=== PATIENT | male | born 1945 | race African-American/Black ===

== ENCOUNTER 2017-05-31 12:06 | Inpatient (IN) | payer OTHER, MEDICARE ==
--- NOTE | 2017-05-31 13:01 | ER Document Report ---
ED Medical Screen (RME) - General Chief Complaint: Weakness Stated Complaint: WEAKNESS Time Seen by Provider: 05/31/17 12:54 Notes: This 72-year-old male patient comes emergency room complaining of weakness and staggering. He has had a congested cough for 2 days, states last night he clear sputum cough all night did not get any sleep. Today he is having trouble controlling his urine. He does have a fever. He did not get a flu shot. He goes to the [facility] for [facility]. I have greeted and performed a rapid initial assessment of this patient. A comprehensive ED assessment and evaluation of the patient, analysis of test results and completion of the medical decision making process will be conducted by additional ED providers. TRAVEL OUTSIDE OF THE [place] 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
[2017-05-31 13:51] LABS: ABSOLUTE EOSINOPHILS # (AUTO) 0.1 10^3/uL (0.0-0.6); ABSOLUTE LYMPHOCYTES (AUTO) 1.1 10^3/uL (0.5-4.7); ABSOLUTE MONOCYTES (AUTO) 0.9 10^3/uL (0.1-1.4); ABSOLUTE NEUT (AUTO) 4.8 10^3/uL (1.7-8.2); BASOPHILS % (AUTO) 0.7 % (0-2); EOSINOPHILS % (AUTO) 0.9 % (0-6); HEMATOCRIT 34.9 % (37.9-51.0); HEMOGLOBIN 11.5 g/dL (13.5-17.0); LYMPHOCYTES % (AUTO) 16.1 % (13-45); MEAN CORPUSCULAR HEMOGLOBIN 25.9 pg (27.0-33.4); MEAN CORPUSCULAR VOLUME 79 fl (80-97); MONOCYTES % (AUTO) 12.6 % (3-13); PLATELET COUNT 238 10^3/uL (150-450); RED BLOOD COUNT 4.44 10^6/uL (4.35-5.55); RED CELL DISTRIBUTION WIDTH 15.1 % (11.5-14.0); SEGMENTED NEUTROPHILS % (AUTO) 69.7 % (42-78); TOTAL CELLS COUNTED % (AUTO) 100 %; WHITE BLOOD COUNT 6.9 10^3/uL (4.0-10.5)
[2017-05-31 13:58] LABS: APPEARANCE,URINE CLEAR; BILIRUBIN,URINE NEGATIVE (NEGATIVE); COLOR,URINE STRAW; GLUCOSE, URINE NEGATIVE (NEGATIVE); KETONES,URINE NEGATIVE (NEGATIVE); LEUKOCYTE ESTERASE,URINE NEGATIVE (NEGATIVE); NITRITE,URINE NEGATIVE (NEGATIVE); PROTEIN,URINE NEGATIVE (NEGATIVE); URINE SPECIFIC GRAVITY 1.012; UROBILINOGEN,URINE NEGATIVE mg/dL (<2.0)
--- NOTE | 2017-05-31 14:03 | RADIOLOGY REPORT (SQ) ---
EXAM DESCRIPTION: CHEST PA/LAT COMPLETED DATE/TIME: 05/31/2017 1:49 pm REASON FOR STUDY: Congested cough, fever, weakness COMPARISON: 01/06/2008 new EXAM PARAMETERS: NUMBER OF VIEWS: two views TECHNIQUE: Digital Frontal and Lateral radiographic views of the chest acquired. RADIATION DOSE: NA LIMITATIONS: none FINDINGS: LUNGS AND PLEURA: Patchy infiltrate changes both lung bases. Overall clearing of the lung palma however since prior study 2007. No large pleural effusion. MEDIASTINUM AND HILAR STRUCTURES: No masses or contour abnormalities. HEART AND VASCULAR STRUCTURES: Decrease in cardiomegaly since prior study. BONES: No acute findings. HARDWARE: None in the chest. OTHER: No other significant finding. IMPRESSION: Patchy changes both lung bases. TECHNICAL DOCUMENTATION: JOB ID: [id number] [employer]- All Rights Reserved
[2017-05-31] MEDS ORDERED: AZITHROMYCIN 250 MG TABLET PO ONE (14:09)
[2017-05-31 14:11] LABS: ALANINE AMINOTRANSFERASE 27 U/L (21-72); ALBUMIN 4.1 g/dL (3.5-5.0); ALKALINE PHOSPHATASE 97 U/L (38-126); ANION GAP 11 (5-19); ASPARTATE AMINO TRANSFERASE 23 U/L (17-59); BILIRUBIN,DIRECT 0.2 mg/dL (0.0-0.4); BILIRUBIN,TOTAL 0.5 mg/dL (0.2-1.3); BLOOD UREA NITROGEN 27 mg/dL (7-20); CALCIUM 9.6 mg/dL (8.4-10.2); CARBON DIOXIDE 26 mmol/L (22-30); CHLORIDE 102 mmol/L (98-107); CREATINE KINASE 120 U/L (55-170); GLUCOSE 100 mg/dL (75-110); POTASSIUM 3.8 mmol/L (3.6-5.0); SODIUM 139.3 mmol/L (137-145)
--- NOTE | 2017-05-31 14:15 | ER Document Report ---
ED General - General Chief Complaint: Weakness Stated Complaint: WEAKNESS Time Seen by Provider: 05/31/17 12:54 Notes: 72-year-old male with history of stroke presents with weakness. For 2 days. Fever yesterday but not today. Weakness is increasing. Decreased appetite today as well. He has been coughing some clear sputum. He has also been losing control of his urine, per report but not per him. No belly pain or vomiting. Denies skin rashes. TRAVEL OUTSIDE OF THE [place] IN LAST 30 DAYS: No - Related Data Allergies/Adverse Reactions: No Known Allergies Allergy (Verified 05/31/17 12:10) Past Medical History - Social History Smoking Status: Never Smoker Chew tobacco use (# tins/day): No Frequency of alcohol use: None Drug Abuse: None Family History: None Patient has suicidal ideation: No Patient has homicidal ideation: No - Past Medical History Cardiac Medical History: Reports: Hx Hypercholesterolemia, Hx Hypertension Pulmonary Medical History: Reports: Hx Pneumonia Renal/ Medical History: Denies: Hx Peritoneal Dialysis GI Medical History: Reports: Hx Gastroesophageal Reflux Disease Skin Medical History: Comment 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 Review of Systems - Review of Systems Notes: REVIEW OF SYSTEMS GEN: Generalized weakness ENT: Denies sore throat, nasal discharge, ear pain EYES: Denies blurry vision, eye pain, discharge CV: Denies chest pain, palpitations, edema RESP: Cough GI: Denies abdominal pain, nausea, vomiting, diarrhea MSK: Denies joint pain/swelling, edema, SKIN: Denies rash, skin lesions LYMPH: Denies swollen glands/lymph nodes NEURO: Denies headache, focal weakness or numbness, dizziness PSYCH: Denies depression, suicidal or homicidal ideation PHYSICAL EXAMINATION General: No acute distress, well-nourished Head: Atraumatic, normocephalic ENT: Mouth normal, oropharynx moist, no exudates or tonsillar enlargement Eyes: Conjunctiva normal, pupils equal, lids normal Neck: No JVD, supple, no guarding CVS: Normal rate, regular rhythm, no murmurs Resp: No resp distress, equal and normal breath sounds bilaterally GI: Nondistended, soft, no tenderness to palpation, no rebound or guarding Ext: No deformities, no edema, normal range of motion in upper and lower ext Back: No CVA or midline TTP Skin: No rash, warm Lymphatic: No lymphadeopathy noted Neuro: Awake, alert. Face symmetric. GCS 15. Physical Exam - Vital signs Vitals: Temp Pulse Resp BP Pulse Ox 100.6 F H 80 20 153/76 H 96 05/31/17 12:11 05/31/17 12:11 05/31/17 12:11 05/31/17 12:11 05/31/17 12:11 Course - Re-evaluation Re-evalutation: 05/31/17 14:14 Weakness for 2 days. Low-grade fever. Differential includes pneumonia urinary tract infection influenza. Does not quite meet sepsis criteria at this time. Patient is quite well- appearing. 05/31/17 14:15 He has an abnormal EKG consistent with LVH but has no chest pain or shortness of breath to suggest acute coronary syndrome. Troponin is pending. 05/31/17 15:25 Patient has pneumonia on chest x-ray. Not technically septic. Given Rocephin and azithromycin. We will give fluids and Tylenol. Tamiflu deferred pending flu test results. Patient admitted, discussed with Dr. Childs hospitalist for full admit floor. - Vital Signs Vital signs: Temp Pulse Resp BP Pulse Ox 100.6 F H 80 20 153/76 H 96 05/31/17 12:11 05/31/17 12:11 05/31/17 12:11 05/31/17 12:11 05/31/17 12:11 - Laboratory Result Diagrams: 05/31/17 12:55 05/31/17 12:55 Laboratory results interpreted by me: 05/31/17 05/31/17 12:55 12:55 Hgb 11.5 L Hct 34.9 L MCV 79 L MCH 25.9 L RDW 15.1 H BUN 27 H Creatinine 1.82 H Est GFR ( Amer) 45 L Est GFR (Non-Af Amer) 37 L - Diagnostic Test Radiology reviewed: Image reviewed, Reports reviewed - EKG Interpretation by Wy EKG shows normal: Sinus rhythm Rate: Normal Rhythm: NSR Voltage: Consistant with LVH - T-wave inversion with ST depression in the lateral leads. No old for comparison. When compared to previous EKG there are: Previous EKG unavailable Discharge - Discharge Clinical Impression: Pneumonia of both lower lobes Qualifiers: Pneumonia type: due to unspecified organism Qualified Code(s): J18.9 - Pneumonia, unspecified organism Condition: Good Disposition: ADMITTED INPATIENT Admitting Provider: Hospitalist Unit Admitted: Medical Floor
[2017-05-31 14:23] LABS: TROPONIN I 0.026 ng/mL
[2017-05-31 14:26] LABS: CREATINE KINASE MB < 0.22 ng/mL (<4.55)
[2017-05-31] MEDS ORDERED: CEFTRIAXONE 1 GM/D5W RTU 1 GM/50 ML RTUPB IV ONE (14:30)
[2017-05-31] MEDS ORDERED: NORMAL SALINE 1000 ML 1,000 ML IV ONE (15:15)
[2017-05-31] MEDS ORDERED: IPRATROPIUM/ALBUTEROL 0.5-2.5 MG/3 ML AMPUL NEB PRN (17:06)
[2017-05-31] MEDS ORDERED: 1/2 NORMAL SALINE 1,000 ML IV PRN (17:06)
[2017-05-31] MEDS ORDERED: MAGNESIUM HYDROXIDE SUSP 30 ML UDCUP PO PRN (17:06)
[2017-05-31] MEDS ORDERED: ONDANSETRON HCL INJ/PF 4 MG/2 ML SDV IV PRN (17:06)
--- NOTE | 2017-05-31 17:06 | PDOC H&P ---
History of Present Illness Admission Date/PCP: 05/31/17 16:07 Patient complains of: Productive cough and weakness. History of Present Illness: KODY GLORIA JR is a 72 year old male. The patient is a poor historian. He tells me that 2 days ago he started to have a cough. His cough progressed to the point that he was unable to sleep last night. He stated that he did not have any fevers, but he did have the shakes and cold chills. This information was given by his cousin. However, with a described sounds like a chill. The patient has been unable to walk since this morning secondary to weakness. The patient did have a low-grade temperature in the emergency department 100.8. The patient denies nausea, vomiting or diarrhea. He does not have a sore throat and he does not have odynophagia. He does describe generalized body aches. Review of systems is otherwise unremarkable. His past medical history is only significant for hypertension and a previous stroke in 1996. Patient's medication list has not yet been updated. The patient is able to tell me that he takes a atenolol but he does not remember the names of his other medications. Therefore, the list is not provided below. We will update this when available. Past Medical History Cardiac Medical History: Reports: Hyperlipidema, Hypertension Pulmonary Medical History: Reports: Pneumonia GI Medical History: Reports: Gastroesophageal Reflux Disease Social History Smoking Status: Never Smoker - Advance Directive Resuscitation Status: Do Not Resuscitate Surrogate healthcare decision maker:: The patient clearly states that he wishes to be a DNR. He states that if his heart stops he must be sick enough to warrant . His surrogate decision maker is his sister who is Blanca David. She can be reached at [phone]. Family History Family History: None, Reviewed & Not Pertinent Parental Family History Reviewed: Yes - Parents of natural causes. Children Family History Reviewed: Yes Sibling(s) Family History Reviewed.: Yes - Children are Alive and Well. Sibling has colon cancer and diabetes. Medication/Allergy Allergies/Adverse Reactions: No Known Allergies Allergy (Verified 05/31/17 12:10) Review of Systems Constitutional: PRESENT: chills, fatigue, weakness Eyes: ABSENT: as per HPI, visual disturbances, other Ears: ABSENT: as per HPI, hearing changes, other Nose, Mouth, and Throat: ABSENT: as per HPI, headache(s), mouth pain, sore throat, vertigo, other Breasts: ABSENT: as per HPI, other Cardiovascular: ABSENT: as per HPI, chest pain, dyspnea on exertion, edema, orthropnea, palpitations, other Respiratory: PRESENT: cough, dyspnea Gastrointestinal: ABSENT: as per HPI, abdominal pain, bloating, coffee ground emesis, constipation, diarrhea, dysphagia, heartburn, hematemesis, hematochezia , melena, nausea, vomiting, other Genitourinary: ABSENT: as per HPI, difficulty urinating, dysuria, hematuria, nocturia, other Musculoskeletal: PRESENT: muscle weakness Integumentary: ABSENT: as per HPI, diaphoresis, erythema, lesions, pruritus, rash, wounds, other Neurological: PRESENT: weakness Psychiatric: ABSENT: as per HPI, anxiety, depression, hallucinations, homidical ideation, suicidal ideation, other Endocrine: ABSENT: as per HPI, cold intolerance, flushing, heat intolerance, menstrual abnormalities, polydipsia, polyphagia, polyuria, other Hematologic/Lymphatic: ABSENT: as per HPI, easy bleeding, easy bruising, lymphadenopathy, other Allergic/Immunologic: ABSENT: as per HPI, seasonal rhinorrhea, other Physical Exam Vital Signs: Temp Pulse Resp BP Pulse Ox 100.6 F H 80 20 153/76 H 96 05/31/17 12:11 05/31/17 12:11 05/31/17 12:11 05/31/17 12:11 05/31/17 12:11 Additional comments: The patient appears to be his stated age. His cognition and mentation are appropriate. His facial appearance is appropriate. His oropharynx is benign. His lips are normal and his mucous membranes are moist. His neck is supple. He does not have any cervical or supraclavicular lymphadenopathy. His lungs are very clear. There are clear anteriorly and posteriorly. His cardiac exam is regular without murmurs, gallops or rubs. The abdomen is obese but soft. Bowel sounds are present. There is no guarding or rebound noted and there are no hernias or masses present. The lower extremities are warm to touch without any pitting edema. The skin is warm dry and intact without lesions or rashes. Results Impressions: Chest X-Ray 05/31/17 12:59 IMPRESSION: Patchy changes both lung bases. Assessment & Plan - Diagnosis (1) Pneumonia of both lower lobes Qualifiers: Pneumonia type: due to unspecified organism Qualified Code(s): J18.9 - Pneumonia, unspecified organism Is this a current diagnosis for this admission?: Yes Plan: The patient's clinical exam and chest x-ray are fairly unremarkable. However, his clinical presentation is suggestive of community-acquired pneumonia. He may be somewhat dehydrated and he may not yet have blossomed out an infiltrate. In any event, I am going to start antibiotics for community-acquired pneumonia with Rocephin and azithromycin. Flu titers will be sent as well. (2) Hypertension Is this a current diagnosis for this admission?: Yes Plan: Once we verify the patient's home medication list I will continue his home regimen. (3) CVA (cerebral vascular accident) Is this a current diagnosis for this admission?: Yes Plan: Once we have verified the patient's home medication list I will continue his routine medications unless there is some contraindication. - Time Time Spent: 30 to 50 Minutes - Inpatient Certification Medical Necessity: Need for IV Antibiotics
[2017-05-31] MEDS ORDERED: HYDRALAZINE HCL INJ/PF 20 MG/1 ML SDV IV PRN (17:15)
[2017-05-31 17:32] LABS: A TYPE INFLUENZA AG NEGATIVE (NEGATIVE); B INFLUENZA AG NEGATIVE (NEGATIVE)
[2017-05-31] MEDS ORDERED: ENOXAPARIN SODIUM INJ 40 MG/0.4 ML DISP.SYRIN SUBCUT ONE (19:00)
[2017-05-31] MEDS: ACETAMINOPHEN 325 MG TABLET PO PRN (19:39)
[2017-05-31] MEDS: ATORVASTATIN CALCIUM 40 MG TABLET PO SCH (21:32)
[2017-05-31] MEDS: GABAPENTIN 300 MG CAPSULE PO SCH (21:32)
[2017-05-31] MEDS: LANSOPRAZOLE 15 MG TAB.RAP.DR PO SCH (21:33)
[2017-06-01] MEDS: ACETAMINOPHEN 325 MG TABLET PO PRN ×3 (00:08→19:39)
[2017-06-01 05:16] LABS: ABSOLUTE LYMPHOCYTES (AUTO) 0.9 10^3/uL (0.5-4.7); ABSOLUTE NEUT (AUTO) 4.8 10^3/uL (1.7-8.2); BASOPHILS % (AUTO) 0.7 % (0-2); EOSINOPHILS % (AUTO) 0.2 % (0-6); HEMATOCRIT 32.5 % (37.9-51.0); HEMOGLOBIN 10.9 g/dL (13.5-17.0); LYMPHOCYTES % (AUTO) 13.7 % (13-45); MEAN CORPUSCULAR HEMOGLOBIN 26.5 pg (27.0-33.4); MEAN CORPUSCULAR HGB CONC 33.4 g/dL (32.0-36.0); MEAN CORPUSCULAR VOLUME 79 fl (80-97); MONOCYTES % (AUTO) 14.4 % (3-13); PLATELET COUNT 189 10^3/uL (150-450); RED CELL DISTRIBUTION WIDTH 15.3 % (11.5-14.0); TOTAL CELLS COUNTED % (AUTO) 100 %; WHITE BLOOD COUNT 6.8 10^3/uL (4.0-10.5)
[2017-06-01 05:36] LABS: ANION GAP 9 (5-19); BLOOD UREA NITROGEN 26 mg/dL (7-20); CALCIUM 8.7 mg/dL (8.4-10.2); CARBON DIOXIDE 26 mmol/L (22-30); CHLORIDE 104 mmol/L (98-107); GLUCOSE 93 mg/dL (75-110); MAGNESIUM 1.9 mg/dL (1.6-2.3); POTASSIUM 3.7 mmol/L (3.6-5.0); SODIUM 139.3 mmol/L (137-145)
[2017-06-01] MEDS ORDERED: (PENDING PHARMACY ID) (Atenolol [Tenormin 100 Mg Tablet] 100 MG) PO SCH (10:00)
[2017-06-01] MEDS ORDERED: AMLODIPINE BESYLATE 10 MG TABLET PO SCH (10:00)
[2017-06-01] MEDS ORDERED: AZITHROMYCIN 500 MG in DEXTROSE 5%-WATER 250 ML IV SCH (10:00)
--- NOTE | 2017-06-01 10:28 | PDOC PROGRESS REPORT ---
Subjective Progress Note for:: 06/01/17 Subjective:: Patient is complaining of generalized weakness He denies pleuritic chest pain or shortness of breath Denies abdominal pain flank pain dysuria no nausea or vomiting Reason For Visit: PNEUMONIA Physical Exam Vital Signs: Temp Pulse Resp BP Pulse Ox 98.1 F 77 24 H 144/74 H 95 06/01/17 05:52 06/01/17 05:52 06/01/17 05:52 06/01/17 05:52 06/01/17 05:52 Does look chronically ill in no acute distress alert and awake Pupils are PERRLA extraocular movements are intact Neck supple Heart regular rhythm Lungs are clear bilaterally no rales no rhonchi Abdomen is soft nontender no organomegaly normal bowel sounds No CVA tenderness Extremities are intact Results Laboratory Results: 06/01/17 05:03 06/01/17 05:03 06/01/17 06/01/17 05:03 05:03 WBC 6.8 RBC 4.10 L Hgb 10.9 L Hct 32.5 L MCV 79 L MCH 26.5 L MCHC 33.4 RDW 15.3 H Plt Count 189 Seg Neutrophils % 71.0 Lymphocytes % 13.7 Monocytes % 14.4 H Eosinophils % 0.2 Basophils % 0.7 Absolute Neutrophils 4.8 Absolute Lymphocytes 0.9 Absolute Monocytes 1.0 Absolute Eosinophils 0.0 Absolute Basophils 0.0 Sodium 139.3 Potassium 3.7 Chloride 104 Carbon Dioxide 26 Anion Gap 9 BUN 26 H Creatinine 1.70 H Est GFR ( Amer) 48 L Est GFR (Non-Af Amer) 40 L Glucose 93 Calcium 8.7 Magnesium 1.9 Impressions: Chest X-Ray 05/31/17 12:59 IMPRESSION: Patchy changes both lung bases. Assessment & Plan - Diagnosis (1) History of CVA (cerebrovascular accident) Is this a current diagnosis for this admission?: Yes (2) Hypertension Qualifiers: Hypertension type: essential hypertension Qualified Code(s): I10 - Essential (primary) hypertension Is this a current diagnosis for this admission?: Yes Plan: Continue patient's present medications We will reevaluate (3) Pneumonia of both lower lobes Qualifiers: Pneumonia type: due to unspecified organism Qualified Code(s): J18.9 - Pneumonia, unspecified organism Is this a current diagnosis for this admission?: Yes Plan: Pneumonia likely to be secondary to gram-negative as patient has gram-negative bacteremia We will continue present management Treat with cefepime and Cipro until identification sensitivity of the blood cultures are available Repeat blood cultures tomorrow (4) Gram-negative bacteremia Is this a current diagnosis for this admission?: Yes Plan: Continue Cipro and cefepime - Time Time Spent with patient: 25-34 minutes - Plan Summary Plan Summary: Continue present management CT abdomen and pelvis pending
--- NOTE | 2017-06-01 10:32 | EKG REPORT ---
SEVERITY:- ABNORMAL ECG - SINUS RHYTHM LVH WITH SECONDARY REPOLARIZATION ABNORMALITY REPOL ABNRM, PROBABLE ISCHEMIA, ANT-LAT LEADS : Confirmed by: Shabnam Mccormick 01-Jun-2017 10:30:32
[2017-06-01] MEDS: LORATADINE 10 MG TABLET PO SCH (10:59)
[2017-06-01] MEDS: AMLODIPINE BESYLATE 5 MG TABLET PO SCH (10:59)
[2017-06-01] MEDS: ATENOLOL 50 MG TABLET PO SCH (11:00)
[2017-06-01] MEDS: ENOXAPARIN SODIUM INJ 40 MG/0.4 ML DISP.SYRIN SUBCUT SCH (11:00)
[2017-06-01] MEDS: ASPIRIN 81 MG TABLET, ENT COATED PO SCH (11:00)
[2017-06-01] MEDS: CHOLECALCIFEROL (D3) 1,000 UNIT TABLET PO SCH (11:00)
[2017-06-01] MEDS: CIPROFLOXACIN 400 MG/D5W RTU 400 MG/200 ML RTUPB IV SCH ×2 (11:58→23:47)
--- NOTE | 2017-06-01 13:47 | RADIOLOGY REPORT (SQ) ---
EXAM DESCRIPTION: CT ABD/PELVIS NO ORAL OR IV COMPLETED DATE/TIME: 06/01/2017 12:43 pm REASON FOR STUDY: gram neg bacteremia ARF COMPARISON: CT angio chest 12/26/2007 TECHNIQUE: CT scan of the abdomen and pelvis performed without intravenous or oral contrast. Images reviewed with lung, soft tissue, and bone windows. Reconstructed coronal and sagittal MPR images revi ewed. All images stored on PACS. All CT scanners at this facility use dose modulation, iterative reconstruction, and/or weight based d osing when appropriate to reduce radiation dose to as low as reasonably achievable (ALARA). [facility]: Dose Right [facility]: CareDose [facility]: Dose Right [facility]: Teradose 4D [facility]: Smart Kili RADIATION DOSE: CT Rad equipment meets quality standard of care and radiation dose reduction techniq ues were employed. CTDIvol: 9.0 mGy. DLP: 478 mGy-cm.mGy. LIMITATIONS: None. FINDINGS: LOWER CHEST: Patchy consolidation in the left posterior costophrenic sulcus, atelectasis v ersus pneumonia. Small hiatal hernia. No cardiomegaly or pericardial effusion NON-CONTRASTED LIVER, SPLEEN, ADRENALS: Evaluation limited by lack of IV contrast. No identified sign ificant masses. PANCREAS: No masses. No peripancreatic inflammatory changes. GALLBLADDER: No identified stones by CT criteria. No inflammatory changes to suggest cholecystitis. RIGHT KIDNEY AND URETER: No suspicious masses. Assessment limited by lack of IV contrast. No signif icant calcifications. No hydronephrosis or hydroureter. LEFT KIDNEY AND URETER: No suspicious masses. Assessment limited by lack of IV contrast. No signifi cant calcifications. No hydronephrosis or hydroureter. AORTA AND RETROPERITONEUM: No aneurysm. No retroperitoneal masses or adenopathy. BOWEL AND PERITONEAL CAVITY: No free intraperitoneal air or fluid. No CT signs of bowel obstruction, colitis or diverticulitis. Incidental finding of several diverticuli along the distal ileum without inflammation, best shown on coronal images 45-51. APPENDIX: Normal. PELVIS, BLADDER, AND ABDOMINAL WALL:No abnormal masses. No free fluid. Bladder normal. Fat containin g right inguinal hernia BONES: No significant findings. OTHER: No other significant finding. IMPRESSION: Left basilar airspace disease worrisome for pneumonia. No findings over the abdomen or pelvis to explain history of g negative bacteremia. No urinary stone s. No abscess. COMMENT: Quality ID # [id number]: Final reports with documentation of one or more dose reduction techniques (e.g., Automated exposure control, adjustment of the mA and/or kV according to patient size, use of iterative reconstruction technique) TECHNICAL DOCUMENTATION: JOB ID: [id number] [employer]- All Rights Reserved
[2017-06-01] MEDS ORDERED: CEFTRIAXONE 1 GM/D5W RTU 1 GM/50 ML RTUPB IV SCH (18:00)
[2017-06-01] MEDS: GABAPENTIN 300 MG CAPSULE PO SCH (21:10)
[2017-06-01] MEDS: TEMAZEPAM 7.5 MG CAPSULE PO PRN (21:10)
[2017-06-01] MEDS: ATORVASTATIN CALCIUM 40 MG TABLET PO SCH (21:11)
[2017-06-01] MEDS: LANSOPRAZOLE 15 MG TAB.RAP.DR PO SCH (21:11)
[2017-06-01] MEDS: CEFEPIME 1 GM/D5W RTU 1 GM/50 ML RTUPB IV SCH (22:27)
[2017-06-02] MEDS: ONDANSETRON HCL INJ/PF 4 MG/2 ML SDV IV PRN ×2 (03:12→08:53)
[2017-06-02 07:03] LABS: ABSOLUTE LYMPHOCYTES (AUTO) 1.2 10^3/uL (0.5-4.7); ABSOLUTE MONOCYTES (AUTO) 0.7 10^3/uL (0.1-1.4); ABSOLUTE NEUT (AUTO) 2.9 10^3/uL (1.7-8.2); BASOPHILS % (AUTO) 0.6 % (0-2); EOSINOPHILS % (AUTO) 0.8 % (0-6); HEMATOCRIT 33.9 % (37.9-51.0); LYMPHOCYTES % (AUTO) 24.3 % (13-45); MEAN CORPUSCULAR HEMOGLOBIN 25.7 pg (27.0-33.4); MEAN CORPUSCULAR HGB CONC 32.5 g/dL (32.0-36.0); MEAN CORPUSCULAR VOLUME 79 fl (80-97); MONOCYTES % (AUTO) 14.3 % (3-13); PLATELET COUNT 178 10^3/uL (150-450); RED BLOOD COUNT 4.27 10^6/uL (4.35-5.55); RED CELL DISTRIBUTION WIDTH 15.2 % (11.5-14.0); TOTAL CELLS COUNTED % (AUTO) 100 %; WHITE BLOOD COUNT 4.8 10^3/uL (4.0-10.5)
[2017-06-02 07:27] LABS: ANION GAP 10 (5-19); BLOOD UREA NITROGEN 21 mg/dL (7-20); CALCIUM 8.5 mg/dL (8.4-10.2); CARBON DIOXIDE 23 mmol/L (22-30); CHLORIDE 104 mmol/L (98-107); GLUCOSE 88 mg/dL (75-110); POTASSIUM 3.6 mmol/L (3.6-5.0); SODIUM 137.1 mmol/L (137-145)
[2017-06-02] MEDS ORDERED: OXYCODONE HCL IR 5 MG TABLET PO PRN (10:07)
[2017-06-02] MEDS ORDERED: OXYCODONE-ACETAMINOPHEN 5-325 MG TABLET PO PRN (10:07)
[2017-06-02] MEDS: ATENOLOL 50 MG TABLET PO SCH (10:44)
[2017-06-02] MEDS: ASPIRIN 81 MG TABLET, ENT COATED PO SCH (10:44)
[2017-06-02] MEDS: LORATADINE 10 MG TABLET PO SCH (10:44)
[2017-06-02] MEDS: ENOXAPARIN SODIUM INJ 40 MG/0.4 ML DISP.SYRIN SUBCUT SCH (10:44)
[2017-06-02] MEDS: AMLODIPINE BESYLATE 5 MG TABLET PO SCH (10:45)
[2017-06-02] MEDS: CHOLECALCIFEROL (D3) 1,000 UNIT TABLET PO SCH (10:45)
[2017-06-02] MEDS: CEFEPIME 1 GM/D5W RTU 1 GM/50 ML RTUPB IV SCH ×2 (10:45→21:45)
[2017-06-02] MEDS: CIPROFLOXACIN 400 MG/D5W RTU 400 MG/200 ML RTUPB IV SCH (11:44)
--- NOTE | 2017-06-02 13:55 | PDOC PROGRESS REPORT ---
Subjective Progress Note for:: 06/02/17 Subjective:: Patient is complainig of lowback pain no fever no chills Reason For Visit: PNEUMONIA Physical Exam Vital Signs: Temp Pulse Resp BP Pulse Ox 98.4 F 66 18 125/56 L 96 06/02/17 12:00 06/02/17 13:28 06/02/17 13:28 06/02/17 12:00 06/02/17 13:28 Intake & Output 06/01/17 06/02/17 06/03/17 00:59 00:59 00:59 Intake Total 270 180 Output Total 200 Balance 70 180 Weight 88.1 kg IDoes look chronically ill in no acute distress alert and awake Pupils are PERRLA extraocular movements are intact Neck supple Heart regular rhythm Lungs are clear bilaterally no rales no rhonchi Abdomen is soft nontender no organomegaly normal bowel sounds No CVA tenderness Extremities are intact Results Laboratory Results: 06/02/17 06:38 06/02/17 06:38 06/02/17 06/02/17 06:38 06:38 WBC 4.8 RBC 4.27 L Hgb 11.0 L Hct 33.9 L MCV 79 L MCH 25.7 L MCHC 32.5 RDW 15.2 H Plt Count 178 Seg Neutrophils % 60.0 Lymphocytes % 24.3 Monocytes % 14.3 H Eosinophils % 0.8 Basophils % 0.6 Absolute Neutrophils 2.9 Absolute Lymphocytes 1.2 Absolute Monocytes 0.7 Absolute Eosinophils 0.0 Absolute Basophils 0.0 Sodium 137.1 Potassium 3.6 Chloride 104 Carbon Dioxide 23 Anion Gap 10 BUN 21 H Creatinine 1.52 H Est GFR ( Amer) 55 L Est GFR (Non-Af Amer) 46 L Glucose 88 Calcium 8.5 Magnesium 2.0 05/31/17 16:45 Sputum Gram Stain - Final 05/31/17 16:45 Sputum Sputum Culture - Final Morax.(Branhamella)Catarrhalis Normal Kristen Impressions: Chest X-Ray 05/31/17 12:59 IMPRESSION: Patchy changes both lung bases. Abdomen/Pelvis CT 06/01/17 10:26 IMPRESSION: Left basilar airspace disease worrisome for pneumonia. No findings over the abdomen or pelvis to explain history of g negative bacteremia. No urinary stones. No abscess. Assessment & Plan - Diagnosis (1) History of CVA (cerebrovascular accident) Is this a current diagnosis for this admission?: Yes (2) Hypertension Qualifiers: Hypertension type: essential hypertension Qualified Code(s): I10 - Essential (primary) hypertension Is this a current diagnosis for this admission?: Yes (3) Pneumonia of both lower lobes Qualifiers: Pneumonia type: due to unspecified organism Qualified Code(s): J18.9 - Pneumonia, unspecified organism Is this a current diagnosis for this admission?: Yes Plan: culture grew Moraxella change cipro for Levaquin (4) Gram-negative bacteremia Is this a current diagnosis for this admission?: Yes Plan: cultures still pending continue IV Cefepime- Levaquin CT abd pelvis was negative (5) CKD (chronic kidney disease) stage 3, GFR 30-59 ml/min Is this a current diagnosis for this admission?: Yes Plan: improving - stable continue IV fluids - Time Time Spent with patient: 15-24 minutes - Plan Summary Plan Summary: awaiting results blood culture reevaluate for discharge in 24-48 hours
[2017-06-02] MEDS: HYDROCODONE/ACETAMINOPHEN 5-325 MG TABLET PO PRN ×2 (14:20→19:45)
[2017-06-02] MEDS: 1/2 NORMAL SALINE 1,000 ML IV PRN (18:21)
[2017-06-02] MEDS: ATORVASTATIN CALCIUM 40 MG TABLET PO SCH (21:46)
[2017-06-02] MEDS: LANSOPRAZOLE 15 MG TAB.RAP.DR PO SCH (21:46)
[2017-06-02] MEDS: GABAPENTIN 300 MG CAPSULE PO SCH (21:47)
[2017-06-02] MEDS: TEMAZEPAM 7.5 MG CAPSULE PO PRN (21:56)
[2017-06-03] MEDS: HYDROCODONE/ACETAMINOPHEN 5-325 MG TABLET PO PRN ×3 (05:48→21:24)
[2017-06-03 07:20] LABS: ABSOLUTE EOSINOPHILS # (AUTO) 0.1 10^3/uL (0.0-0.6); ABSOLUTE LYMPHOCYTES (AUTO) 1.5 10^3/uL (0.5-4.7); ABSOLUTE MONOCYTES (AUTO) 0.7 10^3/uL (0.1-1.4); ABSOLUTE NEUT (AUTO) 1.7 10^3/uL (1.7-8.2); BASOPHILS % (AUTO) 0.7 % (0-2); EOSINOPHILS % (AUTO) 2.3 % (0-6); HEMATOCRIT 33.4 % (37.9-51.0); HEMOGLOBIN 10.9 g/dL (13.5-17.0); MEAN CORPUSCULAR HEMOGLOBIN 26.1 pg (27.0-33.4); MEAN CORPUSCULAR HGB CONC 32.7 g/dL (32.0-36.0); MEAN CORPUSCULAR VOLUME 80 fl (80-97); MONOCYTES % (AUTO) 16.1 % (3-13); PLATELET COUNT 194 10^3/uL (150-450); RED BLOOD COUNT 4.19 10^6/uL (4.35-5.55); RED CELL DISTRIBUTION WIDTH 15.4 % (11.5-14.0); SEGMENTED NEUTROPHILS % (AUTO) 42.9 % (42-78); TOTAL CELLS COUNTED % (AUTO) 100 %
[2017-06-03 07:43] LABS: ANION GAP 8 (5-19); BLOOD UREA NITROGEN 20 mg/dL (7-20); CALCIUM 8.6 mg/dL (8.4-10.2); CARBON DIOXIDE 26 mmol/L (22-30); CHLORIDE 105 mmol/L (98-107); GLUCOSE 84 mg/dL (75-110); MAGNESIUM 1.8 mg/dL (1.6-2.3); POTASSIUM 3.6 mmol/L (3.6-5.0); SODIUM 139.3 mmol/L (137-145)
[2017-06-03] MEDS ORDERED: LEVOFLOXACIN 750 MG/D5W RTU 750 MG/150 ML RTUPB IV SCH (10:00)
[2017-06-03] MEDS: CHOLECALCIFEROL (D3) 1,000 UNIT TABLET PO SCH (10:06)
[2017-06-03] MEDS: AMLODIPINE BESYLATE 5 MG TABLET PO SCH (10:06)
[2017-06-03] MEDS: ENOXAPARIN SODIUM INJ 40 MG/0.4 ML DISP.SYRIN SUBCUT SCH (10:06)
[2017-06-03] MEDS: LORATADINE 10 MG TABLET PO SCH (10:07)
[2017-06-03] MEDS: ASPIRIN 81 MG TABLET, ENT COATED PO SCH (10:07)
[2017-06-03] MEDS: ATENOLOL 50 MG TABLET PO SCH (10:07)
[2017-06-03] MEDS: CEFEPIME 1 GM/D5W RTU 1 GM/50 ML RTUPB IV SCH (12:09)
[2017-06-03] MEDS: 1/2 NORMAL SALINE 1,000 ML IV PRN (12:14)
--- NOTE | 2017-06-03 14:02 | Physician Advisory Note ---
Physician Advisor ProgressNote .: Pursuant to the plan for [facility], I have reviewed the medical record for this patient. Physician Advisor Statement: Nice documentation of GN bacteremia (no clear sepsis). Please consider documenting, if you agree: 1. "BLL M. [place]allas Pneumonia, evidenced by fever, chills, dyspnea, cough w/ sputum, infiltrates, tachypnea up to 24, ..." (Securities Clerk can't assume causality - dr must make explicit. Evidence for PNA dx.s must be spelled out now, as payers are denying cases based on "insufficient documented clinical evidence".) - This dx is listed as Principal Dx on H&P - if this is the main reason for admission, please keep it as Dx #1 in all notes. 2. "Past CVA w/associated Left Hemiparesis" Thanks! CK
--- NOTE | 2017-06-03 17:40 | PDOC PROGRESS REPORT ---
Subjective Progress Note for:: 06/03/17 Subjective:: Patient states that he is feeling well and he has no complaints ; no shortness of breath No nausea vomiting or abdominal pain Reason For Visit: PNEUMONIA Physical Exam Vital Signs: Temp Pulse Resp BP Pulse Ox 98.0 F 59 L 18 132/76 H 97 06/03/17 15:00 06/03/17 15:00 06/03/17 15:00 06/03/17 15:00 06/03/17 15:00 Intake & Output 06/02/17 06/03/17 06/04/17 00:59 00:59 00:59 Intake Total 270 440 100 Output Total 200 650 Balance 70 -210 100 Weight 88.1 kg 88 kg General appearance: PRESENT: no acute distress, well-developed, well-nourished Head exam: PRESENT: atraumatic, normocephalic Eye exam: PRESENT: conjunctiva pink, EOMI, PERRLA. ABSENT: scleral icterus Neck exam: ABSENT: carotid bruit, JVD, lymphadenopathy, thyromegaly Respiratory exam: PRESENT: clear to auscultation soni. ABSENT: rales, rhonchi, wheezes Pulses: PRESENT: normal dorsalis pedis pul GI/Abdominal exam: PRESENT: normal bowel sounds, soft. ABSENT: distended, guarding, mass, organolmegaly, rebound, tenderness Extremities exam: PRESENT: full ROM. ABSENT: calf tenderness, clubbing, pedal edema Results Laboratory Results: 06/03/17 06:20 06/03/17 06:20 06/03/17 06/03/17 06:20 06:20 WBC 4.0 RBC 4.19 L Hgb 10.9 L Hct 33.4 L MCV 80 MCH 26.1 L MCHC 32.7 RDW 15.4 H Plt Count 194 Seg Neutrophils % 42.9 Lymphocytes % 38.0 Monocytes % 16.1 H Eosinophils % 2.3 Basophils % 0.7 Absolute Neutrophils 1.7 Absolute Lymphocytes 1.5 Absolute Monocytes 0.7 Absolute Eosinophils 0.1 Absolute Basophils 0.0 Sodium 139.3 Potassium 3.6 Chloride 105 Carbon Dioxide 26 Anion Gap 8 BUN 20 Creatinine 1.68 H Est GFR ( Amer) 49 L Est GFR (Non-Af Amer) 41 L Glucose 84 Calcium 8.6 Magnesium 1.8 Impressions: Chest X-Ray 05/31/17 12:59 IMPRESSION: Patchy changes both lung bases. Abdomen/Pelvis CT 06/01/17 10:26 IMPRESSION: Left basilar airspace disease worrisome for pneumonia. No findings over the abdomen or pelvis to explain history of g negative bacteremia. No urinary stones. No abscess. Assessment & Plan - Diagnosis (1) History of CVA (cerebrovascular accident) Is this a current diagnosis for this admission?: Yes (2) Hypertension Qualifiers: Hypertension type: essential hypertension Qualified Code(s): I10 - Essential (primary) hypertension Is this a current diagnosis for this admission?: Yes Plan: Controlled (3) Pneumonia of both lower lobes Qualifiers: Pneumonia type: due to unspecified organism Qualified Code(s): J18.9 - Pneumonia, unspecified organism Is this a current diagnosis for this admission?: Yes Plan: Pneumonia secondary to Moraxella Patient has been on cefepime and Levaquin We discussed the case with infectious disease at by [facility] and it was felt that patient would be adequately covered with ceftriaxone (4) Gram-negative bacteremia Is this a current diagnosis for this admission?: Yes Plan: E. coli bacteremia likely originating from GI or tract CT abdomen and pelvis was essentially negative Infectious disease advised that we treat the patient for total of 7 days with ceftriaxone 2 g daily then follow-up With Cipro 500 mg twice daily for another 7 days patient was initially treated with cefepime which is adequate; treatment with ceftriaxone will end on 06/07 patient may be discharged on on p.o. Cipro (5) CKD (chronic kidney disease) stage 3, GFR 30-59 ml/min Is this a current diagnosis for this admission?: Yes Plan: Stage III stable with a creatinine of 1.6 - Time Time Spent with patient: 25-34 minutes
[2017-06-03] MEDS: CEFTRIAXONE 2 GM/D5W RTU 2 GM/50 ML RTUPB IV SCH (17:57)
[2017-06-03] MEDS: ATORVASTATIN CALCIUM 40 MG TABLET PO SCH (21:21)
[2017-06-03] MEDS: LANSOPRAZOLE 15 MG TAB.RAP.DR PO SCH (21:22)
[2017-06-03] MEDS: GABAPENTIN 300 MG CAPSULE PO SCH (21:22)
[2017-06-04] MEDS: 1/2 NORMAL SALINE 1,000 ML IV PRN ×2 (03:30→17:36)
--- NOTE | 2017-06-04 08:40 | PDOC PROGRESS REPORT ---
Subjective Progress Note for:: 06/04/17 Subjective:: Patient presenting with pneumonia found have bacteremia. Patient states he is doing well. Patient requesting a pain pill. Reason For Visit: PNEUMONIA Physical Exam Vital Signs: Temp Pulse Resp BP Pulse Ox 98.7 F 68 18 131/58 H 98 06/04/17 04:00 06/04/17 04:00 06/04/17 04:00 06/04/17 04:00 06/04/17 04:00 Intake & Output 06/03/17 06/04/17 06/05/17 06:59 06:59 06:59 Intake Total 360 550 Output Total 650 2075 200 Balance -290 -1525 -200 Weight 88 kg 88 kg General appearance: PRESENT: no acute distress, well-developed, well-nourished Head exam: PRESENT: atraumatic, normocephalic Eye exam: PRESENT: conjunctiva pink, EOMI, PERRLA. ABSENT: scleral icterus Ear exam: PRESENT: normal external ear exam Mouth exam: PRESENT: moist, tongue midline Neck exam: ABSENT: carotid bruit, JVD, lymphadenopathy, thyromegaly Respiratory exam: PRESENT: clear to auscultation soni. ABSENT: rales, rhonchi, wheezes Cardiovascular exam: PRESENT: RRR. ABSENT: diastolic murmur, rubs, systolic murmur Pulses: PRESENT: normal dorsalis pedis pul Vascular exam: PRESENT: normal capillary refill GI/Abdominal exam: PRESENT: normal bowel sounds, soft. ABSENT: distended, guarding, mass, organolmegaly, rebound, tenderness Rectal exam: PRESENT: deferred Extremities exam: PRESENT: full ROM. ABSENT: calf tenderness, clubbing, pedal edema Neurological exam: PRESENT: alert, awake, oriented to person, oriented to place , oriented to time, oriented to situation, CN II-XII grossly intact. ABSENT: motor sensory deficit Psychiatric exam: PRESENT: appropriate affect, normal mood. ABSENT: homicidal ideation, suicidal ideation Skin exam: PRESENT: dry, intact, warm. ABSENT: cyanosis, rash Results Laboratory Results: 06/03/17 06:20 06/03/17 06:20 Impressions: Chest X-Ray 05/31/17 12:59 IMPRESSION: Patchy changes both lung bases. Abdomen/Pelvis CT 06/01/17 10:26 IMPRESSION: Left basilar airspace disease worrisome for pneumonia. No findings over the abdomen or pelvis to explain history of g negative bacteremia. No urinary stones. No abscess. Assessment & Plan - Diagnosis (1) Gram-negative bacteremia Is this a current diagnosis for this admission?: Yes Plan: Ecoli bacteremia. Patient was on cefepime and switch to ceftriaxone. No clear source of bacteremia. Case discussed with [facility] at [facility] who recommend 7 days of IV antibiotics and 7 days of cipro on discharge. Repeat blood cultures no growth. Patient want to make [facility]. (2) Pneumonia of both lower lobes Qualifiers: Pneumonia type: due to unspecified organism Qualified Code(s): J18.9 - Pneumonia, unspecified organism Is this a current diagnosis for this admission?: Yes Plan: Patient with M. catarallas pneumonia evidence by fever, chill, dsypnea, productive cough and inflitrates and tachypnea. Patient currently on ceftriaxone. Continue current management. Patient significantly improved. (3) History of CVA (cerebrovascular accident) Is this a current diagnosis for this admission?: Yes Plan: Patient with left residual hemiparesis. Continue aspirin and statin. (4) CKD (chronic kidney disease) stage 3, GFR 30-59 ml/min Is this a current diagnosis for this admission?: Yes Plan: Possibly secondary to hypertension. Patient with acute on chronic renal failure stage 3. Patient creatinine was 1.82 now 1.68. Continue gentle hydration and monitor. (5) Hypertension Qualifiers: Hypertension type: essential hypertension Qualified Code(s): I10 - Essential (primary) hypertension Is this a current diagnosis for this admission?: Yes Plan: Well controlled on current medications. Continue to monitor. - Time Time Spent with patient: Less than 15 minutes Anticipated discharge: Home, Home with Homehealth Within: within 72 hours - Inpatient Certification Medical Necessity: Need for IV Antibiotics
[2017-06-04] MEDS ORDERED: POTASSIUM CHLORIDE 10 MEQ TABLET.SA PO ONE (09:00)
[2017-06-04] MEDS: HYDROCODONE/ACETAMINOPHEN 5-325 MG TABLET PO PRN ×3 (09:15→17:35)
[2017-06-04] MEDS: AMLODIPINE BESYLATE 5 MG TABLET PO SCH (09:17)
[2017-06-04] MEDS: LORATADINE 10 MG TABLET PO SCH (09:17)
[2017-06-04] MEDS: ENOXAPARIN SODIUM INJ 40 MG/0.4 ML DISP.SYRIN SUBCUT SCH (09:18)
[2017-06-04] MEDS: CHOLECALCIFEROL (D3) 1,000 UNIT TABLET PO SCH (09:19)
[2017-06-04] MEDS: ASPIRIN 81 MG TABLET, ENT COATED PO SCH (09:19)
[2017-06-04] MEDS: ATENOLOL 50 MG TABLET PO SCH (09:19)
[2017-06-04] MEDS: CEFTRIAXONE 2 GM/D5W RTU 2 GM/50 ML RTUPB IV SCH (17:19)
[2017-06-04] MEDS: GABAPENTIN 300 MG CAPSULE PO SCH (22:19)
[2017-06-04] MEDS: ATORVASTATIN CALCIUM 40 MG TABLET PO SCH (22:19)
[2017-06-04] MEDS: LANSOPRAZOLE 15 MG TAB.RAP.DR PO SCH (22:19)
[2017-06-05] MEDS: HYDROCODONE/ACETAMINOPHEN 5-325 MG TABLET PO PRN ×3 (00:13→19:27)
[2017-06-05] MEDS: ENOXAPARIN SODIUM INJ 40 MG/0.4 ML DISP.SYRIN SUBCUT SCH (09:11)
[2017-06-05] MEDS: AMLODIPINE BESYLATE 5 MG TABLET PO SCH (09:13)
[2017-06-05] MEDS: LORATADINE 10 MG TABLET PO SCH (09:14)
[2017-06-05] MEDS: CHOLECALCIFEROL (D3) 1,000 UNIT TABLET PO SCH (09:14)
[2017-06-05] MEDS: ATENOLOL 50 MG TABLET PO SCH (09:14)
[2017-06-05] MEDS: ASPIRIN 81 MG TABLET, ENT COATED PO SCH (09:14)
[2017-06-05] MEDS: CEFTRIAXONE 2 GM/D5W RTU 2 GM/50 ML RTUPB IV SCH (18:03)
[2017-06-05] MEDS: ATORVASTATIN CALCIUM 40 MG TABLET PO SCH (22:16)
[2017-06-05] MEDS: LANSOPRAZOLE 15 MG TAB.RAP.DR PO SCH (22:16)
[2017-06-05] MEDS: GABAPENTIN 300 MG CAPSULE PO SCH (22:16)
[2017-06-06] MEDS ORDERED: CEFTRIAXONE 2 GM/D5W RTU 2 GM/50 ML RTUPB IV ONE (09:30)
[2017-06-06] MEDS: CHOLECALCIFEROL (D3) 1,000 UNIT TABLET PO SCH (09:39)
[2017-06-06] MEDS: ATENOLOL 50 MG TABLET PO SCH (09:40)
[2017-06-06] MEDS: LORATADINE 10 MG TABLET PO SCH (09:41)
[2017-06-06] MEDS: ASPIRIN 81 MG TABLET, ENT COATED PO SCH (09:41)
[2017-06-06] MEDS: AMLODIPINE BESYLATE 5 MG TABLET PO SCH (09:41)
[2017-06-06] MEDS: ENOXAPARIN SODIUM INJ 40 MG/0.4 ML DISP.SYRIN SUBCUT SCH (09:50)
[2017-06-06 09:53] VITALS: BP 131/58
--- NOTE | 2017-06-06 12:29 | PDOC PROGRESS REPORT ---
Subjective Progress Note for:: 06/05/17 Subjective:: Patient presenting with pneumonia found have bacteremia. Patient states he is doing well. He is currently resting. Reason For Visit: PNEUMONIA Physical Exam Vital Signs: Selected Entries 06/05/17 15:37 Temperature 97.9 F Temperature Oral Source Pulse Rate 64 Respiratory 15 Rate Blood Pressure 122/63 Blood Pressure 82 Mean BP Location Left Arm BP Position Supine O2 Sat by Pulse 98 Oximetry Oxygen Delivery Room Air Method General appearance: PRESENT: no acute distress, well-developed, well-nourished Head exam: PRESENT: atraumatic, normocephalic Eye exam: PRESENT: conjunctiva pink, EOMI, PERRLA. ABSENT: scleral icterus Ear exam: PRESENT: normal external ear exam Mouth exam: PRESENT: moist, tongue midline Neck exam: ABSENT: carotid bruit, JVD, lymphadenopathy, thyromegaly Respiratory exam: PRESENT: clear to auscultation soni. ABSENT: rales, rhonchi, wheezes Cardiovascular exam: PRESENT: RRR. ABSENT: diastolic murmur, rubs, systolic murmur Pulses: PRESENT: normal dorsalis pedis pul Vascular exam: PRESENT: normal capillary refill GI/Abdominal exam: PRESENT: normal bowel sounds, soft. ABSENT: distended, guarding, mass, organolmegaly, rebound, tenderness Rectal exam: PRESENT: deferred Extremities exam: PRESENT: full ROM. ABSENT: calf tenderness, clubbing, pedal edema Neurological exam: PRESENT: alert, awake, oriented to person, oriented to place , oriented to time, oriented to situation, CN II-XII grossly intact. ABSENT: motor sensory deficit Psychiatric exam: PRESENT: appropriate affect, normal mood. ABSENT: homicidal ideation, suicidal ideation Skin exam: PRESENT: dry, intact, warm. ABSENT: cyanosis, rash Results Laboratory Results: 06/03/17 06:20 06/03/17 06:20 Impressions: Chest X-Ray 05/31/17 12:59 IMPRESSION: Patchy changes both lung bases. Abdomen/Pelvis CT 06/01/17 10:26 IMPRESSION: Left basilar airspace disease worrisome for pneumonia. No findings over the abdomen or pelvis to explain history of g negative bacteremia. No urinary stones. No abscess. Assessment & Plan - Diagnosis (1) Gram-negative bacteremia Is this a current diagnosis for this admission?: Yes Plan: Ecoli bacteremia. Patient was on cefepime and switch to ceftriaxone. No clear source of bacteremia. Case discussed with ID at [facility] who recommend 7 days of IV antibiotics and 7 days of cipro on discharge. Repeat blood cultures no growth. (2) Pneumonia of both lower lobes Qualifiers: Pneumonia type: due to unspecified organism Qualified Code(s): J18.9 - Pneumonia, unspecified organism Is this a current diagnosis for this admission?: Yes Plan: Patient with M. catarallas pneumonia evidence by fever, chill, dsypnea, productive cough and inflitrates and tachypnea. Patient currently on ceftriaxone. Continue current management. Patient significantly improved. (3) History of CVA (cerebrovascular accident) Is this a current diagnosis for this admission?: Yes Plan: Patient with left residual hemiparesis. Continue aspirin and statin. (4) CKD (chronic kidney disease) stage 3, GFR 30-59 ml/min Is this a current diagnosis for this admission?: Yes Plan: Possibly secondary to hypertension. Patient with acute on chronic renal failure stage 3. Patient creatinine was 1.82 now 1.68. Still voiding well. This may be patient's baseline. (5) Hypertension Qualifiers: Hypertension type: essential hypertension Qualified Code(s): I10 - Essential (primary) hypertension Is this a current diagnosis for this admission?: Yes Plan: Controlled. continue to monitor. - Time Time Spent with patient: Less than 15 minutes Within: within 24 hours - Inpatient Certification Medical Necessity: Need for IV Antibiotics
--- NOTE | 2017-06-06 12:38 | PDOC DISCHARGE SUMMARY ---
General - Admit/Disc Date/PCP Admission Date/Primary Care Provider: 05/31/17 16:07 Discharge Date: 06/06/17 - Discharge Diagnosis (1) Gram-negative bacteremia Is this a current diagnosis for this admission?: Yes (2) Pneumonia of both lower lobes Is this a current diagnosis for this admission?: Yes (3) History of CVA (cerebrovascular accident) Is this a current diagnosis for this admission?: Yes (4) CKD (chronic kidney disease) stage 3, GFR 30-59 ml/min Is this a current diagnosis for this admission?: Yes (5) Hypertension Is this a current diagnosis for this admission?: Yes - Additional Information Resuscitation Status: Do Not Resuscitate Discharge Diet: Cardiac Discharge Activity: Activity As Tolerated Prescriptions: Ciprofloxacin HCl [Cipro 500 mg Tablet] 500 mg PO BID 7 Days #14 tablet Home Medications: Amlodipine Besylate [Norvasc 10 mg Tablet] 5 mg PO DAILY 05/31/17 Aspirin [Aspirin EC] 81 mg PO DAILY 05/31/17 Atenolol [Tenormin 100 mg Tablet] 100 mg PO DAILY 05/31/17 Atorvastatin Calcium [Lipitor 40 mg Tablet] 40 mg PO QHS 05/31/17 Cholecalciferol (Vitamin D3) [Vitamin D3 1000 Unit Tablet] 1,000 unit PO DAILY 05/31/17 Gabapentin [Neurontin 300 mg Capsule] 300 mg PO QHS 05/31/17 Loratadine [Claritin 10 mg Tablet] 10 mg PO DAILY 05/31/17 Losartan Potassium [Cozaar 100 mg Tablet] 100 mg PO DAILY 05/31/17 Omeprazole 20 mg PO QHS 05/31/17 Triamterene/Hydrochlorothiazid [Triamterene-Hctz 37.5-25 mg Tb] 1 tab PO DAILY 05/31/17 Acetaminophen [Tylenol 325 mg Tablet] 650 mg PO Q4HP PRN tablet 06/06/17 Ciprofloxacin HCl [Cipro 500 mg Tablet] 500 mg PO BID 7 Days #14 tablet History of Present Illness History of Present Illness: KODY GLORIA JR is a 72 year old male patient presented with a 2 day history of cough. Patient did not complain of any fevers however was found to have a temperature of 100.8 in the ED. Patient had been so weak he was unable to walk. Please refer to H&P dictated by Dr. Childs for complete details. Hospital Course Hospital Course: Patient was admitted for bilateral lobe pneumonia. Patient initially was started on ceftriaxone and azithromycin. Patient was later on found to be bacteremic with E. coli with Moraxella and his sputum. At one point patient was switched to cefepime however will switch back to ceftriaxone. There is concern as to why patient had E. coli bacteremia when his UA was negative. Patient repeat blood cultures were negative. Diet was called and the case was discussed with infectious disease who recommended ceftriaxone for 7 days followed by Cipro for 7 more days. Patient has completed 7 doses of ceftriaxone while in the hospital and is being discharged home on Cipro. Patient states he would pay for the prescription versus [facility] as it may take days for him to get medication. Patient was told that the medication will cost him $22.76. She was okay with this. Patient also noted to have renal failure. This does appear chronic in nature. Most likely due to poorly controlled hypertension. Patient creatinine did trend down from 1.82 - 1.68. She did not have any difficulty voiding. Although patient did have some CVA in the past with some residual deficit patient was able to ambulate with no assist and with no obvious weakness. She has been discharged home to complete 7 more days of antibiotics with Cipro 500 mg p.o. twice daily. [facility]. Patient sees Dr. Cyril House at the [facility]. Physical Exam Vital Signs: Temp Pulse Resp BP Pulse Ox 98.2 F 61 16 131/58 H 97 06/06/17 10:44 06/06/17 10:44 06/06/17 10:44 06/06/17 10:44 06/06/17 10:44 Intake & Output 06/05/17 06/06/17 06/07/17 06:59 06:59 06:59 Intake Total 940 1000 500 Output Total 2350 550 550 Balance -1410 450 -50 Weight 88.7 kg 89.2 kg General appearance: PRESENT: no acute distress, well-developed, well-nourished Head exam: PRESENT: atraumatic, normocephalic Eye exam: PRESENT: conjunctiva pink, EOMI, PERRLA. ABSENT: scleral icterus Ear exam: PRESENT: normal external ear exam Mouth exam: PRESENT: moist, tongue midline Neck exam: ABSENT: carotid bruit, JVD, lymphadenopathy, thyromegaly Respiratory exam: PRESENT: clear to auscultation soni. ABSENT: rales, rhonchi, wheezes Cardiovascular exam: PRESENT: RRR. ABSENT: diastolic murmur, rubs, systolic murmur Pulses: PRESENT: normal dorsalis pedis pul Vascular exam: PRESENT: normal capillary refill GI/Abdominal exam: PRESENT: normal bowel sounds, soft. ABSENT: distended, guarding, mass, organolmegaly, rebound, tenderness Rectal exam: PRESENT: deferred Extremities exam: PRESENT: full ROM. ABSENT: calf tenderness, clubbing, pedal edema Neurological exam: PRESENT: alert, awake, oriented to person, oriented to place , oriented to time, oriented to situation, CN II-XII grossly intact. ABSENT: motor sensory deficit Psychiatric exam: PRESENT: appropriate affect, normal mood. ABSENT: homicidal ideation, suicidal ideation Skin exam: PRESENT: dry, intact, warm. ABSENT: cyanosis, rash Results Laboratory Results: 06/03/17 06:20 06/03/17 06:20 Impressions: Chest X-Ray 05/31/17 12:59 IMPRESSION: Patchy changes both lung bases. Abdomen/Pelvis CT 06/01/17 10:26 IMPRESSION: Left basilar airspace disease worrisome for pneumonia. No findings over the abdomen or pelvis to explain history of g negative bacteremia. No urinary stones. No abscess. Qualifiers PATEINT BEING DISCHARGED WITH ANY OF THE FOLLOWING DIAGNOSIS?: No Plan Time Spent: Greater than 30 Minutes
== END 2017-06-06 11:34 | disposition home or self-care (01) | DRG 178 ==
LOC: ER 12:06 → EH 16:07 → 2N 06-01 05:30
PROVIDERS: ADMIT Internal Medicine; ATTEND Internal Medicine
DX: J15.8 Pneumonia due to other specified bacteria (principal); N17.9 Acute kidney failure, unspecified; R78.81 Bacteremia; I69.354 Hemiplegia and hemiparesis following cerebral infarction affecting left non-dominant side; Z66 Do not resuscitate; I12.9 Hypertensive chronic kidney disease with stage 1 through stage 4 chronic kidney disease, or unspecified chronic kidney disease; N18.3 Chronic kidney disease, stage 3 (moderate); B96.20 Unspecified Escherichia coli [E. coli] as the cause of diseases classified elsewhere; E78.5 Hyperlipidemia, unspecified; K21.9 Gastro-esophageal reflux disease without esophagitis; R53.1 Weakness; Z86.14 Personal history of Methicillin resistant Staphylococcus aureus infection; Z87.01 Personal history of pneumonia (recurrent)
CPT/HCPCS: 36415; 71046; 74176; 80048; 80053; 80307; 81001; 82550; 82553; 83735; 84484; 85025; 87040; 87070; 87077; 87186; 87205; 87804; 93005; 93010; 96365; 99285; J0692; J0696; J0744; J1650; J1956; J2405; J3490; J7030; J7620

== ENCOUNTER 2017-09-25 09:47 | Emergency (ER) | payer MEDICARE, OTHER ==
--- NOTE | 2017-09-25 11:04 | RADIOLOGY REPORT (SQ) ---
EXAM DESCRIPTION: CHEST 2 VIEWS COMPLETED DATE/TIME: 09/25/2017 10:37 am REASON FOR STUDY: cough COMPARISON: None. EXAM PARAMETERS: NUMBER OF VIEWS: two views TECHNIQUE: Digital Frontal and Lateral radiographic views of the chest acquired. RADIATION DOSE: NA LIMITATIONS: none FINDINGS: LUNGS AND PLEURA: No opacities, masses or pneumothorax. No pleural effusion. MEDIASTINUM AND HILAR STRUCTURES: No masses or contour abnormalities. HEART AND VASCULAR STRUCTURES: Heart normal size. No evidence for failure. BONES: No acute findings. HARDWARE: None in the chest. OTHER: No other significant finding. IMPRESSION: NO ACUTE RADIOGRAPHIC FINDING IN THE CHEST. TECHNICAL DOCUMENTATION: JOB ID: [id number] [employer]- All Rights Reserved Reading location - IP/workstation name: [email or web address]
--- NOTE | 2017-09-25 11:24 | ER Document Report ---
HPI - HPI Pain Level: 4 Notes: Patient is a 72-year-old male with a history of hypertension and prev CVA who presents to the ED complaining of a dry nonproductive cough, nasal congestion/ discharge 4 days. Patient states that he was diagnosed with pneumonia a few months ago with similar symptoms. Patient states that he is eating and drinking I difficulties. He is urinating normally and having normal bowel movements. He has not been using any [id number] meds for symptoms. Patient is requesting an antibiotic as well as a chest x-ray. Patient states that he is ambulatory without any development of chest pain or dyspnea on exertion. He denies any smoking or IV drug use. Denies any headache, fever, neck paisore throat, chest pain, palpitations, syncope, shortness of breath, wheeze, dyspnea, abdominal pain, nausea/vomiting/diarrhea, urinary retention, dysuria, hematuria, or rash. - ROS Systems Reviewed and Negative: Yes All other systems reviewed and negative - CONSTITUTIONAL Constitutional: DENIES: Fever, Chills - EENT EENT: DENIES: Sore Throat, Ear Pain - NEURO Neurology: REPORTS: Headache. DENIES: Weakness, Vision blurred, Dizzinesss / Vertigo - CARDIOVASCULAR Cardiovascular: DENIES: Chest pain - RESPIRATORY Respiratory: REPORTS: Coughing. DENIES: Trouble Breathing - GASTROINTESTINAL Gastrointestinal: DENIES: Abdominal Pain, Black / Bloody Stools - URINARY Urinary: DENIES: Dysuria, Urgency, Frequency - REPRODUCTIVE Reproductive: DENIES: : - MUSCULOSKELETAL Musculoskeletal: DENIES: Extremity pain Past Medical History - Social History Smoking Status: Never Smoker Chew tobacco use (# tins/day): No Frequency of alcohol use: None Drug Abuse: None Family History: None, Reviewed & Not Pertinent Patient has suicidal ideation: No Patient has homicidal ideation: No - Past Medical History Cardiac Medical History: Reports: Hx Hypercholesterolemia, Hx Hypertension Pulmonary Medical History: Reports: Hx Pneumonia Renal/ Medical History: Denies: Hx Peritoneal Dialysis GI Medical History: Reports: Hx Gastroesophageal Reflux Disease Skin Medical History: Comment 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 A&Ox4. Answers questions appropriately. Moves comfortably w/o notable distress HEAD: Atraumatic, normocephalic. EYES: Pupils equal round and reactive to light, extraocular movements intact, sclera anicteric, conjunctiva are normal. ENT: EAC clear b/l. TM's intact b/l without erythema, fluid, or perforation. Nares patent and with clear discharge. oropharynx no erythema without exudates. No tonsilar hypertrophy without erythema or exudate. No palatine shift. Uvula midline. No tongue protrusion. No drooling, hoarseness, or airway compromise. Moist mucous membranes. No sinus tenderness. NECK: Normal range of motion, supple without lymphadenopathy. No rigidity/ meningismus. LUNGS: Breath sounds clear to auscultation bilaterally and equal. No wheezes rales or rhonchi. No retractions HEART: Regular rate and rhythm without murmurs, rubs, gallops. ABDOMEN: Soft, nontender, nondistended abdomen. No guarding, no rebound. No masses appreciated. Normal bowel sounds present. No CVA tenderness bilaterally. NEUROLOGICAL: Normal speech, normal gait. Normal sensory, motor exams PSYCH: Normal mood, normal affect. SKIN: Warm, Dry, normal turgor, no rashes or lesions noted. - INFECTION CONTROL TRAVEL OUTSIDE OF THE [place] IN LAST 30 DAYS: No Course - Re-evaluation Re-evalutation: 09/25/17 11:21 Patient is an afebrile, well-hydrated, 72-year-old male who presents to the ED with an acute URI, suspect viral at this time. Vitals are acceptable. PE is otherwise unremarkable. Patient is tolerating p.o. without difficulties. He has no tachycardia, tachypnea, or hypoxia. Chest x-ray was unremarkable for any acute pathology. Low suspicion for any meningitis, sepsis, peritonsillar/ pharyngeal abscess, respiratory compromise, or other emergent systemic condition at this time. Patient is aware this condition can change from initial presentation and he needs to monitor symptoms closely. I will send him home with a pocket prescription of Zithromax which he may begin in 3 days with ongoing/worsening symptoms. Conservative measures otherwise for symptoms. Recheck with your PCM in 3-5 days. Return to the ED with any worsening/ concerning symptoms otherwise as reviewed in discharge. Patient is in agreement. - Vital Signs Vital signs: Temp Pulse Resp BP Pulse Ox 98.6 F 81 18 168/89 H 97 09/25/17 09:53 09/25/17 09:53 09/25/17 09:53 09/25/17 09:53 09/25/17 09:53 Discharge - Discharge Clinical Impression: Acute URI Condition: Stable Disposition: HOME, SELF-CARE Instructions: Upper Respiratory Illness ([facility]) Additional Instructions: Maintain adequate fluid intake Take meds as directed tylenol/ibuprofen as needed over the counter cold medication as needed for symptoms Humidified air may help Wash your hands regularly Wear a mask when coughing F/u: with your PCM in 3-5 days for a recheck Return to the ED with any fever, worsening pain, chest pain, palpitations, syncope, worsening MITTAL, neck pain/stiffness, shortness of breath, wheezing, drooling, trouble swallowing/breathing, abdominal pain, n/v/d, rash, or worsening/concerning symptoms otherwise. Prescriptions: Azithromycin [Zithromax 250 mg Tablet] 250 mg PO ASDIR PRN #6 tablet PRN Reason: Forms: Elevated Blood Pressure Referrals: [facility] [Provider Group] - Follow up in 3-5 days
[2017-09-25 11:40] VITALS: BP 173/78
== END 2017-09-25 11:40 | disposition home or self-care (01) ==
LOC: ER 09:47
DX: J06.9 Acute upper respiratory infection, unspecified (principal); R05 Cough; R09.81 Nasal congestion; R09.89 Other specified symptoms and signs involving the circulatory and respiratory systems; I10 Essential (primary) hypertension; Z86.73 Personal history of transient ischemic attack (TIA), and cerebral infarction without residual deficits
CPT/HCPCS: 71046; 99283